=== PATIENT | female | born 1940 | race Caucasian/White ===

== ENCOUNTER 2021-10-15 18:10 | Observation (INO) | payer MEDICARE ==
[2021-10-15 18:47] LABS: #Eosinphils 0.2 thou/uL (0.0-0.7); #Lymphocytes 2.1 thou/uL (1.20-3.40); #Monocytes 0.6 thou/uL (0.11-0.59); #Neutrophils 3.7 thou/uL (1.40-6.50); %Basophils 0.2 % (0.0-1.0); %Eosinophils 2.6 % (0.0-10.0); %Lymphocytes 32.7 % (21.0-51.0); %Neutrophils 55.6 % (42.0-75.0); Hemoglobin 12.1 g/dL (12.0-16.0); Mean Corpuscular HGB CONC 31.9 g/dL (32.0-36.0); Mean Corpuscular Hemoglobin 28.3 pg (27.0-31.0); Mean Corpuscular Volume 88.8 fL (78.0-98.0); Platelet Count 280 thou/uL (130-400); Red Blood Cell (RBC) Count 4.28 mill/uL (4.20-5.40); White Blood Cell (WBC) Count 6.6 thou/uL (4.8-10.8)
[2021-10-15 19:17] LABS: ALT (SGPT) 11 U/L (8-55); AST (SGOT) 17 U/L (5-34); Alkaline Phosphatase 81 U/L (40-110); Anion Gap 12 mmol/L (10-20); BUN (Urea Nitrogen) 22 mg/dL (9.8-20.1); Calc. Creatinine Clearance 0 mL/min (70-130); Calcium 9.7 mg/dL (7.8-10.44); Carbon Dioxide 26 mmol/L (23-31); Chloride 107 mmol/L (98-107); Estimated GFR 48; Globulin 2.9 g/dL (2.4-3.5); Glucose 91 mg/dL (83-110); Lipase 42 U/L (8-78); Potassium 4.4 mmol/L (3.5-5.1); Protein, Total 6.9 g/dL (5.8-8.1); Sodium 141 mmol/L (136-145)
[2021-10-15] MEDS ORDERED: Nitroglycerin 2% Ointment 1 INCH/1 GM Packet ONE (20:53)
[2021-10-15] MEDS ORDERED: Aspirin Chewable 81 MG TAB ONE (20:53)
[2021-10-15] MEDS ORDERED: Acetaminophen 325 MG TAB PO PRN (21:55)
[2021-10-15 22:16] LABS: Troponin I Less than 0.010 ng/mL (< 0.028)
[2021-10-15 22:47] VITALS: BMI 41.3
[2021-10-16 01:13] LABS: Troponin I 0.013 ng/mL (< 0.028)
[2021-10-16 05:11] LABS: Hemoglobin A1c 6.1 % (4.0-6.0)
[2021-10-16] MEDS: Levothyroxine Sodium 100 MCG TAB PO SCH ×2 (05:13→06:09)
[2021-10-16 05:18] LABS: Anion Gap 15 mmol/L (10-20); BUN (Urea Nitrogen) 22 mg/dL (9.8-20.1); Calc. Creatinine Clearance 70 mL/min (70-130); Calcium 9.3 mg/dL (7.8-10.44); Carbon Dioxide 22 mmol/L (23-31); Cardiac Risk 2.5 (Less than 4.5); Chloride 108 mmol/L (98-107); Cholesterol 111 mg/dl (< 200 Desired); Estimated GFR 56; Glucose 103 mg/dL (83-110); HDL Cholesterol 44 mg/dL (>60 Neg Risk); LDL Cholesterol, Calculated 41 mg/dL; Potassium 3.8 mmol/L (3.5-5.1); Sodium 141 mmol/L (136-145); Triglycerides 129 mg/dL (Less than 150)
[2021-10-16] MEDS ORDERED: Regadenoson 0.4 MG/5 ML SYRINGE ONE (08:42)
[2021-10-16] MEDS ORDERED: DULoxetine 30 MG CAP PO SCH (09:00)
[2021-10-16] MEDS ORDERED: Aspirin Chewable 81 MG TAB PO SCH (09:00)
[2021-10-16] MEDS ORDERED: Cholecalciferol 1,000 UNITS (25 MCG) TAB PO SCH (09:00)
[2021-10-16] MEDS ORDERED: Amlodipine 5 MG TAB PO SCH (09:00)
[2021-10-16] MEDS ORDERED: Losartan 25 MG TAB PO SCH (09:00)
[2021-10-16] MEDS ORDERED: Enoxaparin Sodium 40 MG/0.4 ML SYRINGE SC SCH (09:00)
[2021-10-16 12:00] VITALS: TEMP 98.2
[2021-10-16 16:14] VITALS: BP 125/62
[2021-10-16] MEDS ORDERED: Atorvastatin Calcium 40 MG TAB PO SCH (21:00)
== END 2021-10-16 17:15 | disposition home or self-care (01) ==
LOC: ERS 18:10 → 2SW 21:01
PROVIDERS: ADMIT Family Medicine; ATTEND Family Medicine
DX: R07.89 Other chest pain (principal); I12.9 Hypertensive chronic kidney disease with stage 1 through stage 4 chronic kidney disease, or unspecified chronic kidney disease; N18.9 Chronic kidney disease, unspecified; I25.10 Atherosclerotic heart disease of native coronary artery without angina pectoris; E03.9 Hypothyroidism, unspecified; K44.9 Diaphragmatic hernia without obstruction or gangrene; K21.9 Gastro-esophageal reflux disease without esophagitis; E78.5 Hyperlipidemia, unspecified; J44.9 Chronic obstructive pulmonary disease, unspecified; I25.2 Old myocardial infarction; Z86.73 Personal history of transient ischemic attack (TIA), and cerebral infarction without residual deficits; Z87.891 Personal history of nicotine dependence; Z79.890 Hormone replacement therapy; Z79.899 Other long term (current) drug therapy; Z88.8 Allergy status to other drugs, medicaments and biological substances; Z20.822 Contact with and (suspected) exposure to COVID-19
CPT/HCPCS: 71045; 78452; 80048; 80053; 80061; 83036; 83690; 84443; 84484 ×3; 85025; 93005; 93017; 94660; 94760; 99285; A9500; U0003; U0005; 36415; 96372; G0378; J1650; J2785